=== PATIENT | male | born 1945 | race American Indian/Alaskan Native ===

== ENCOUNTER 2018-04-09 19:05 | Emergency (ER) | payer MEDICARE ==
--- NOTE | 2018-04-09 19:45 | Emergency Department Report ---
Blank Doc - Documentation Documentation: 72 y.o. male brought into ER via EMS with loss of memory and alcohol abuse. P atient states he fell and could not remember his address so EMS brought him to the emergency room. Admits to drinking today. Denies SI/HI, nausea and vomiting, chest pain, or palpitations Labs ordered MSE complete
[2018-04-09 20:01] LABS: Basophils % (Auto) 0.8 % (0.0-1.8); Eosinophils # (Auto) 0.1 K/mm3 (0.0-0.4); Eosinophils % (Auto) 2.2 % (0.0-4.3); Hematocrit 54.7 % (35.5-45.6); Hemoglobin 18.3 gm/dl (11.8-15.2); Lymphocytes # (Auto) 2.4 K/mm3 (1.2-5.4); Lymphocytes % (Auto) 43.3 % (13.4-35.0); Mean Corpuscular HGB Conc 34 % (32-34); Mean Corpuscular Volume 110 fl (84-94); Monocytes # (Auto) 0.4 K/mm3 (0.0-0.8); Monocytes % (Auto) 7.7 % (0.0-7.3); Platelet Count 173 K/mm3 (140-440); Red Blood Count 4.96 M/mm3 (3.65-5.03); Red Cell Distribution Width 14.3 % (13.2-15.2)
[2018-04-09 20:07] VITALS: BP 150/94
[2018-04-09 20:14] LABS: BUN/Creatinine Ratio 12; Blood Urea Nitrogen 11 mg/dL (9-20); Calcium 9.2 mg/dL (8.4-10.2); Hemolysis Index 29
--- NOTE | 2018-04-09 20:32 | Emergency Department Report ---
ED Alcohol HPI - General Chief Complaint: Alcohol Stated Complaint: AMS Time Seen by Provider: 04/09/18 19:40 Source: patient, EMS Mode of arrival: Stretcher Limitations: Other - History of Present Illness Initial Comments: Mr. Cheema is a very pleasant 72-year-old male who was brought by EMS. He was able to give a full history. He stated that he fell at the local [facility] which brought attention to himself. [facility] staff called EMS. He admitted to drinking half a pint of bourbon. He states that he just needs to go home. He lives in a home with his son. He does not have any medical conditions. He does not take any medications. He does not have any injuries. He has been very pleasant. He just desires to be discharged. According to my colleague's screening note, he was brought to ER because he could not remember his address. Last Drink: just [employer] Chronic Alcohol Use: Yes Previous Visits for Alcohol Intoxication?: No Recent Trauma: No Associated Symptoms: denies other symptoms Treatments Prior to Arrival: none - Related Data Home Medications Medication Instructions Recorded Confirmed Last Taken No Known Home Medications [No 11/10/14 11/10/14 Unknown Reported Home Medications] Allergies Allergy/AdvReac Type Severity Reaction Status Date / Time No Known Allergies Allergy Verified 11/10/14 02:37 ED Review of Systems ROS: Stated complaint: AMS Other details as noted in HPI Comment: All other systems reviewed and negative Constitutional: denies: fever, malaise Respiratory: denies: cough Cardiovascular: denies: chest pain Gastrointestinal: denies: abdominal pain ED Past Medical Hx - Past Medical History Previous Medical History?: Yes Hx Hypertension: No Hx Heart Attack/AMI: No Hx Kidney Stones: Yes - Surgical History Past Surgical History?: Yes Additional Surgical History: Kidney stones "blasted" at urologist - Social History Smoking Status: Current Every Day Smoker Substance Use Type: Alcohol - Medications Home Medications: Home Medications Medication Instructions Recorded Confirmed Last Taken Type No Known Home Medications [No 11/10/14 11/10/14 Unknown History Reported Home Medications] ED Physical Exam - General Limitations: Other General appearance: alert, in no apparent distress - Head Head exam: Present: atraumatic, normocephalic - Eye Eye exam: Present: normal appearance - ENT ENT exam: Present: mucous membranes moist - Neck Neck exam: Present: normal inspection. Absent: tenderness, meningismus - Respiratory Respiratory exam: Present: normal lung sounds bilaterally. Absent: respiratory distress, wheezes, rales, rhonchi - Cardiovascular Cardiovascular Exam: Present: regular rate, normal rhythm, normal heart sounds. Absent: systolic murmur, diastolic murmur, rubs, gallop - GI/Abdominal GI/Abdominal exam: Present: soft, normal bowel sounds. Absent: distended, tenderness, guarding, rebound - Rectal Rectal exam: Present: deferred - Extremities Exam Extremities exam: Present: normal inspection - Back Exam Back exam: Present: normal inspection - Neurological Exam Neurological exam: Present: alert, oriented X3 - Psychiatric Psychiatric exam: Present: normal affect, normal mood - Skin Skin exam: Present: warm, dry, intact, normal color. Absent: rash ED Course Vital Signs 04/09/18 04/09/18 19:25 20:05 Temperature 98.3 F 99.3 F Pulse Rate 81 84 Respiratory 18 16 Rate Blood Pressure 148/98 150/94 Blood Pressure 150/94 [Right] O2 Sat by Pulse 97 96 Oximetry ED Medical Decision Making - Lab Data Result diagrams: 04/09/18 19:50 04/09/18 19:50 Laboratory Results - last 24 hr 04/09/18 04/09/18 04/09/18 19:50 19:50 19:50 WBC 5.6 RBC 4.96 Hgb 18.3 H Hct 54.7 H MCV 110 H MCH 37 H MCHC 34 RDW 14.3 Plt Count 173 Lymph % (Auto) 43.3 H [place] % (Auto) 7.7 H Eos % (Auto) 2.2 Baso % (Auto) 0.8 Lymph # 2.4 [place] # 0.4 Eos # 0.1 Baso # 0.0 Seg Neutrophils % 46.0 Seg Neutrophils # 2.6 Sodium 141 Potassium 4.1 Chloride 104.0 Carbon Dioxide 24 Anion Gap 17 BUN 11 Creatinine 0.9 Estimated GFR > 60 BUN/Creatinine Ratio 12 Glucose 87 Calcium 9.2 Salicylates < 0.3 L Acetaminophen Plasma/Serum Alcohol 04/09/18 04/09/18 19:50 19:50 WBC RBC Hgb Hct MCV MCH MCHC RDW Plt Count Lymph % (Auto) [place] % (Auto) Eos % (Auto) Baso % (Auto) Lymph # [place] # Eos # Baso # Seg Neutrophils % Seg Neutrophils # Sodium Potassium Chloride Carbon Dioxide Anion Gap BUN Creatinine Estimated GFR BUN/Creatinine Ratio Glucose Calcium Salicylates Acetaminophen < 5.0 L Plasma/Serum Alcohol 0.11 H - Medical Decision Making Mr. Cheema presents with acute alcohol intoxication and fall. I had a very pleasant conversation with his son Nehemiah . Nehemiah did explain that his father has declined over quite some time. However, Nehemiah does make sure that his father has annual physicals with a PCP. Due to his frailty, Nehemiah does not allow Mr. Cheema to leave the home. Nehemiah agreed to come and machine pecan picker his father. No evidence of head injury or traumatic injury due to fall. Mr. Cheema is alert and insightful. Labs notable for hemoconcentration reflecting volume contraction. Also blood alcohol level is slightly above the legal limit at 0.11 Mr. Cheema's address is [address] [place] [address] Mr. Cheema was actually able to describe where he lived using street turns. However, he was unable to give the full address. Critical care attestation.: If time is entered above; I have spent that time in minutes in the direct care of this critically ill patient, excluding procedure time. ED Disposition Clinical Impression: Acute alcohol intoxication, Fall Disposition: DC-01 TO HOME OR SELFCARE Is pt being admited?: No Does the pt Need Aspirin: No Condition: Stable Instructions: Abuse of Alcohol (ED) Referrals: BIBI DAMON DO [Primary Care Provider] - 3-5 Days
== END 2018-04-09 20:48 | disposition home or self-care (01) ==
LOC: ED 19:05
DX: F10.129 Alcohol abuse with intoxication, unspecified (principal); F17.200 Nicotine dependence, unspecified, uncomplicated; W18.30XA Fall on same level, unspecified, initial encounter; Y93.89 Activity, other specified; Y99.8 Other external cause status; Y92.89 Other specified places as the place of occurrence of the external cause
CPT/HCPCS: 36415; 80048; 85025; 99283; G0480; 80320

== ENCOUNTER 2018-05-07 07:51 | Inpatient (IN) | payer MEDICARE ==
[2018-05-07] MEDS ORDERED: NACL 0.9% 1000 ML 1,000 ML IV ONE (08:37)
[2018-05-07 09:03] LABS: Basophils % (Auto) 0.6 % (0.0-1.8); Eosinophils % (Auto) 0.5 % (0.0-4.3); Lymphocytes # (Auto) 1.2 K/mm3 (1.2-5.4); Lymphocytes % (Auto) 18.4 % (13.4-35.0); Mean Corpuscular HGB Conc 36 % (32-34); Mean Corpuscular Volume 106 fl (84-94); Monocytes # (Auto) 0.5 K/mm3 (0.0-0.8); Monocytes % (Auto) 7.1 % (0.0-7.3); Platelet Count 181 K/mm3 (140-440); Red Blood Count 4.69 M/mm3 (3.65-5.03); Red Cell Distribution Width 13.6 % (13.2-15.2)
[2018-05-07 09:08] LABS: Hematocrit 49.6 % (35.5-45.6); Hemoglobin 17.6 gm/dl (11.8-15.2)
[2018-05-07 09:17] LABS: Alanine Aminotransferase 11 units/L (7-56); Albumin 3.8 g/dL (3.9-5); BUN/Creatinine Ratio 19; Blood Urea Nitrogen 13 mg/dL (9-20); Calcium 9.1 mg/dL (8.4-10.2); Hemolysis Index 21
--- NOTE | 2018-05-07 10:27 | Cat Scan Report ---
CT HEAD WITHOUT CONTRAST: 05/07/18 09:40 CLINICAL: Altered mental status. TECHNIQUE: 2.5-mm noncontrast scans. COMPARISON:None FINDINGS: Mild motion degrades the quality of the imaging. The ventricles are disproportionately large to the sulci and the ventriculomegaly involves the lateral, third and fourth ventricles. Moderate bilateral periventricular white matter hypodensities.An 8mm focal hypodensity of the left insula with no mass effect. The left side of the jojo is also diffusely hypodense but this may be due to streak artifact. No mass. No hemorrhage, edema or extra-axial collection. The sinuses are clear. Normal orbits and soft tissues. The calvarium and skull base are intact. 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 A left insular hypodensity suggests a possible subacute infarct. Left pontine hypodensity is also suspicious. Recommend MRI.
--- NOTE | 2018-05-07 10:59 | Emergency Department Report ---
ED General Adult HPI - General Chief complaint: Weakness Stated complaint: ETOH/UNABLE TO WALK Time Seen by Provider: 05/07/18 08:52 Source: EMS Mode of arrival: Stretcher Limitations: Altered Mental Status, Physical Limitation - History of Present Illness Initial comments: 72-year-old male found by police department on the side of the road with alcohol bottles around him. Patient was unable to ambulate, so EMS called. Patient apparently reported that tis has been happening for a while. Patient will not answer my questions. Accucheck by RN was in the 60s, meal tray given. I asked pt if he wanted breakfast, pt replied "I don't want it." -: unknown Severity scale (0 -10): 0 - Related Data Home Medications Medication Instructions Recorded Confirmed Last Taken No Known Home Medications [No 11/10/14 05/07/18 Unknown Reported Home Medications] Allergies Allergy/AdvReac Type Severity Reaction Status Date / Time No Known Allergies Allergy Verified 11/10/14 02:37 ED Review of Systems ROS: Stated complaint: ETOH/UNABLE TO WALK Other details as noted in HPI Comment: Unobtainable due to pts medical conditions (pt won't answer questions) ED Past Medical Hx - Past Medical History Hx Hypertension: No Hx Heart Attack/AMI: No Hx Kidney Stones: Yes Additional medical history: pt is poor historian - Surgical History Additional Surgical History: Kidney stones "blasted" at urologist - Social History Smoking Status: Never Smoker Substance Use Type: Alcohol - Medications Home Medications: Home Medications Medication Instructions Recorded Confirmed Last Taken Type No Known Home Medications [No 11/10/14 05/07/18 Unknown History Reported Home Medications] ED Physical Exam - General Limitations: Physical Limitation General appearance: alert, in no apparent distress - Head Head exam: Present: atraumatic, normocephalic - Eye Eye exam: Present: normal appearance - ENT ENT exam: Present: mucous membranes moist - Neck Neck exam: Present: normal inspection - Respiratory Respiratory exam: Present: normal lung sounds bilaterally. Absent: respiratory distress - Cardiovascular Cardiovascular Exam: Present: regular rate, normal rhythm - GI/Abdominal GI/Abdominal exam: Present: soft. Absent: distended, tenderness - Extremities Exam Extremities exam: Present: normal inspection - Neurological Exam Neurological exam: Present: alert, other (NIH: 7 (questions 1a =1, 1b= 1, 5a=2, 6a=2, 6b=1, 9=1)). Absent: CN II-XII intact - Psychiatric Psychiatric exam: Present: flat affect - Skin Skin exam: Present: dry ED Course Vital Signs 05/07/18 05/07/18 05/07/18 08:14 08:16 08:21 Temperature 97.9 F Pulse Rate 97 H 98 H 97 H Respiratory 25 H 22 20 Rate Blood Pressure 165/107 O2 Sat by Pulse 100 100 100 Oximetry 05/07/18 05/07/18 05/07/18 08:30 08:46 09:00 Temperature Pulse Rate 89 93 H 88 Respiratory 19 20 16 Rate Blood Pressure 165/107 155/101 161/122 O2 Sat by Pulse 100 100 100 Oximetry 05/07/18 05/07/18 05/07/18 09:15 09:30 10:32 Temperature Pulse Rate 88 84 83 Respiratory 18 17 15 Rate Blood Pressure 170/117 176/110 162/95 O2 Sat by Pulse 100 100 100 Oximetry 05/07/18 05/07/18 05/07/18 10:45 11:00 11:15 Temperature Pulse Rate 90 85 91 H Respiratory 16 14 15 Rate Blood Pressure 156/97 162/95 161/105 O2 Sat by Pulse 100 100 100 Oximetry 05/07/18 05/07/18 05/07/18 11:30 11:45 12:00 Temperature Pulse Rate 95 H 87 89 Respiratory 20 14 17 Rate Blood Pressure 182/102 170/101 158/99 O2 Sat by Pulse 100 100 100 Oximetry 05/07/18 05/07/18 05/07/18 12:15 12:30 12:46 Temperature Pulse Rate 90 101 H 97 H Respiratory 18 21 18 Rate Blood Pressure 153/97 161/98 159/97 O2 Sat by Pulse 100 100 100 Oximetry 05/07/18 05/07/18 05/07/18 13:00 13:15 13:30 Temperature Pulse Rate 96 H 96 H 94 H Respiratory 21 22 21 Rate Blood Pressure 148/97 148/97 155/87 O2 Sat by Pulse 99 100 100 Oximetry 05/07/18 13:45 Temperature Pulse Rate 96 H Respiratory 20 Rate Blood Pressure 156/93 O2 Sat by Pulse 100 Oximetry ED Medical Decision Making - Lab Data Result diagrams: 05/07/18 08:41 05/07/18 08:41 - EKG Data -: EKG Interpreted by Me EKG shows normal: sinus rhythm, axis, intervals, QRS complexes, ST-T waves Rate: normal - EKG Data Interpretation: no acute changes - Radiology Data Radiology results: report reviewed, image reviewed - Medical Decision Making 72-year-old male found by PD, brought in by EMS. Poor historian. CT head shows possible subacute infarcts. Patient has some left-sided deficit compared to right however he is not very compliant with exam. Remainder of workup is unr emarkable. Will admit hospitalist, Dr Soler. - Differential Diagnosis intoxication, CVA, dementia, infection Critical care attestation.: If time is entered above; I have spent that time in minutes in the direct care of this critically ill patient, excluding procedure time. ED Disposition Clinical Impression: CVA (cerebral vascular accident) Disposition: OP ADMIT IP TO THIS HOSP Is pt being admited?: Yes Condition: Stable Time of Disposition: 11:44
[2018-05-07 11:03] LABS: Bilirubin,Urine NEG (Negative); Blood,Urine NEG (Negative); Color,Urine Yellow (Yellow); Mucus,Urine FEW /HPF
[2018-05-07 11:12] LABS: Amphetamine Screen,Urine PRESUMPTIVE NEGATIVE; Benzodiazepines Screen,Urine PRESUMPTIVE NEGATIVE; Cannabinoid Screen,Urine PRESUMPTIVE NEGATIVE; Cocaine Screen,Urine PRESUMPTIVE NEGATIVE; Methadone Screen,Urine PRESUMPTIVE NEGATIVE; Opiate Screen,Urine PRESUMPTIVE NEGATIVE
--- NOTE | 2018-05-07 11:19 | XRay Report ---
AP CHEST: HISTORY: Altered mental status AP view of the chest demonstrates a normal mediastinal and cardiac contour with clear lungs and normal bony and soft tissue structures. IMPRESSION: Unremarkable AP chest.
--- NOTE | 2018-05-07 13:17 | History and Physical Report ---
History of Present Illness Chief complaint: i feel weak History of present illness: 72 YO Male with Nephrolithiasis, ETOH Dependence presents to ED for evaluation. Pt is confused and provides limited history. Pt history taken from ED staff, and EMS. As per staff, the patient was found to be confused, and unable to stand by police department. Pt was also lying on the side of the road with multiple empty alcohol bottles. Patient was unable to ambulate. EMS notified, and upon arrival the patient was found to have neurologic deficit. Pt transported to [facility]. Pt seen and evaluated in ED and found to have symptoms consistent with CVA. Pt admitted to telemetry and initiated on CVA protocol. No further history obtain able. Past History Past Medical History: other (Nephrolithiasis) Past Surgical History: Other (ESWOL) Social history: alcohol abuse Family history: no significant family history (reviewed) Medications and Allergies Allergies Allergy/AdvReac Type Severity Reaction Status Date / Time No Known Allergies Allergy Verified 11/10/14 02:37 Home Medications Medication Instructions Recorded Confirmed Last Taken Type No Known Home Medications [No 11/10/14 05/07/18 Unknown History Reported Home Medications] Review of Systems ROS unobtainable: due to mental status Exam - Constitutional Vitals: Temp Pulse Resp BP Pulse Ox 97.9 F 97 H 18 159/97 100 05/07/18 08:21 05/07/18 12:46 05/07/18 12:46 05/07/18 12:46 05/07/18 12:46 General appearance: Present: mild distress - EENT Eyes: Present: PERRL ENT: hearing intact, clear oral mucosa - Neck Neck: Present: supple, normal ROM - Respiratory Respiratory effort: normal Respiratory: bilateral: CTA - Cardiovascular Heart Sounds: Present: S1 & S2. Absent: rub, click - Extremities Extremities: pulses symmetrical, No edema Peripheral Pulses: within normal limits - Abdominal General gastrointestinal: Present: soft, non-tender, non-distended, normal bowel sounds Male genitourinary: Present: normal - Integumentary Integumentary: Present: clear, warm, dry - Musculoskeletal Musculoskeletal: generalized weakness - Psychiatric Psychiatric: no appropriate mood/affect, no intact judgment & insight, no memory intact - Neurologic Neurologic: CNII-XII intact, no gait normal Results - Labs CBC & Chem 7: 05/07/18 08:41 05/07/18 08:41 Labs: Abnormal lab results 05/07/18 05/07/18 05/07/18 Range/Units 08:41 08:41 08:56 Hgb 17.6 H (11.8-15.2) gm/dl Hct 49.6 H (35.5-45.6) % MCV 106 H (84-94) fl MCH 38 H (28-32) pg MCHC 36 H (32-34) % Seg Neutrophils % 73.4 H (40.0-70.0) % Sodium 136 L (137-145) mmol/L Creatinine 0.7 L (0.8-1.5) mg/dL POC Glucose 63 L (70-105) Albumin 3.8 L (3.9-5) g/dL Assessment and Plan - Patient Problems (1) CVA (cerebral vascular accident) Current Visit: Yes Status: Acute Qualifiers: Precerebral and cerebral artery: posterior cerebral artery Plan to address problem: Admit to telemetry: CVA Protocol: CT Head, MRI Brain, MRA Brain, Echo, Carotid Doppler, PT/OT/Speech Therapy, antiplatelet therapy, statin therapy, lipid panel (2) EtOH dependence Current Visit: Yes Status: Acute Qualifiers: Complication of substance-induced condition: with perceptual disturbance Plan to address problem: BAnana bag, thiamine, folic acid, multivitamin daily. (3) Encephalopathy Current Visit: Yes Status: Acute Plan to address problem: CT head, neuro checks, thyroid panel, (4) DVT prophylaxis Current Visit: Yes Status: Acute Plan to address problem: SCD to BLE while in bed. - Level of Consciousness 1a. Level of Consciousness: arousable/minor stimuli - LOC Questions 1b. LOC Questions: answers both correctly - LOC Command 1c. LOC Commands: performs tasks correctly - Best Gaze 2. Best Gaze: normal - Visual 3. Visual: no visual loss - Facial Palsy 4. Facial Palsy: normal symmetrical movement - Motor Arm 5a. Motor Arm Left: no drift 5b. Motor Arm Right: some gravity effort - Motor Leg 6a. Motor Leg Left: no drift 6b. Motor Leg Right: no movement - Limb Ataxia 7. Limb Ataxia: absent - Sensory 8. Sensory: mild/moderate sensory loss - Best Language 9. Best Language: no aphasia - Dysarthria 10. Dysarthria: normal - Extinction and Inattention 11. Extinction/Inattention: no abnormality - Scoring Total Score: 8 Stroke Severity: Moderate Stroke
[2018-05-07] MEDS ORDERED: MILK OF MAGNESIA PO PRN (13:29)
[2018-05-07] MEDS ORDERED: ZOFRAN IV PRN (13:29)
[2018-05-07] MEDS ORDERED: TYLENOL PO PRN (13:29)
[2018-05-07] MEDS ORDERED: PROVENTIL IH PRN (13:29)
[2018-05-07] MEDS ORDERED: PHENERGAN PR PRN (13:29)
[2018-05-07] MEDS ORDERED: SODIUM CHLORIDE FLUSH SYRINGE 10 ML IV PRN (13:29)
[2018-05-07] MEDS ORDERED: REGLAN PO PRN (13:29)
[2018-05-07] MEDS ORDERED: ATIVAN IV PRN (13:34)
[2018-05-07] MEDS ORDERED: THERAGRAN Tab PO ONE (13:36)
[2018-05-07] MEDS ORDERED: DULCOLAX PR PRN (13:46)
[2018-05-07] MEDS ORDERED: VITAMIN B-1 PO ONE (14:36)
[2018-05-07] MEDS ORDERED: FOLVITE 1 MG, INFUVITE 10 ML in NACL 0.9% 1000 ML 1,000 ML IV ONE (15:00)
--- NOTE | 2018-05-07 18:25 | Magnetic Resonance Report ---
PROCEDURE: MRI brain without contrast. TECHNIQUE: Magnetic resonance imaging of the brain was performed without contrast material. HISTORY: Stroke. COMPARISONS: CT head 05/06/2018. Dictation not available. FINDINGS: There is severe motion artifact on the majority of the pulse sequences. There is mild cerebral atroph y. There is some abnormal increased signal intensity within the periventricular deep white matter on the T2 and FLAIR weighted sequences. This is not unusual for age and likely represents chronic microv ascular ischemic change. There are no mass lesions. There is no intracranial hemorrhage. There are no signs of restricted diffusion. The mastoid air cells and paranasal sinuses are grossly clear. IMPRESSION: Very limited study due to motion artifact. Mild cerebral atrophy and chronic ischemic whi te matter disease consistent with age. This document is electronically signed by Christian Dickens MD., May 07 2018 06:23:01 PM ET
[2018-05-07 19:18] LABS: Free T4 (Free Thyroxine) 1.03 ng/dL (0.76-1.46)
--- NOTE | 2018-05-07 19:33 | Magnetic Resonance Report ---
PROCEDURE: Magnetic resonance angiogram of the brain without contrast. TECHNIQUE: Axial 3-D [id number] MR angiography of the [place] of [place] and brain was performed. The source images were reconstructed in various views using maximum intensity projection. HISTORY: Stroke. COMPARISONS: None. FINDINGS: This study is severely limited by severe motion artifact. Both distal internal carotid arteries are p atent. Both distal vertebral arteries are patent. The basilar artery is patent. The superior cerebell ar and posterior cerebral arteries are patent. The middle cerebral and anterior cerebral arteries are not adequately visualized. IMPRESSION: Very limited study with severe motion artifact. Patent major vessels as described. This document is electronically signed by Christian Dickens MD., May 07 2018 07:30:46 PM ET
[2018-05-08] MEDS: FOLVITE PO SCH (10:28)
[2018-05-08] MEDS: ASPIRIN PO SCH (10:28)
--- NOTE | 2018-05-08 13:34 | Consultation ---
History of Present Illness Consult date: 05/08/18 Requesting physician: KELLY GILLILAND Reason for Consult: stroke evaluation History of present illness: 72 yr old male with hx of nephrolithiasis and alcohol dependence was found down by the police. When he attempting to stand him up, he was unable to walk. He was brought to the ER for evaluation. A stroke work-up ensued. Today the pt. denies pain. He does not take any medications Past History Past Medical History: other (Nephrolithiasis) Past Surgical History: Other (ESWOL) Social history: alcohol abuse Family history: no significant family history (reviewed) Medications and Allergies Allergies Allergy/AdvReac Type Severity Reaction Status Date / Time No Known Allergies Allergy Verified 11/10/14 02:37 Home Medications Medication Instructions Recorded Confirmed Last Taken Type No Known Home Medications [No 11/10/14 05/07/18 Unknown History Reported Home Medications] Active Meds: Active Medications Acetaminophen (Tylenol) 650 mg PO Q4H PRN PRN Reason: Pain, Mild (1-3) Last Admin: 05/08/18 10:37 Dose: 650 mg Documented by: Albuterol (Proventil) 2.5 mg IH Q3HRT PRN PRN Reason: Shortness Of Breath Aspirin (Aspirin) 325 mg PO QDAY [facility] Last Admin: 05/08/18 10:28 Dose: 325 mg Documented by: Atorvastatin Calcium (Lipitor) 40 mg PO QHS [facility] Last Admin: 05/07/18 21:30 Dose: 40 mg Documented by: Bisacodyl (Dulcolax) 10 mg [place] QDAY PRN PRN Reason: Constipation Folic Acid (Folvite) 1 mg PO QDAY [facility] Last Admin: 05/08/18 10:28 Dose: 1 mg Documented by: Lorazepam (Ativan) 2 mg IV Q1HR PRN PRN Reason: CIWA-Ar 8-15 Magnesium Hydroxide (Milk Of Magnesia) 30 ml PO Q4H PRN PRN Reason: Constipation Metoclopramide HCl (Reglan) 10 mg PO Q6H PRN PRN Reason: Nausea And Vomiting Ondansetron HCl (Zofran) 4 mg IV Q8H PRN PRN Reason: Nausea And Vomiting Promethazine HCl (Phenergan) 25 mg [place] Q6H PRN PRN Reason: Nausea And Vomiting Sodium Chloride (Sodium Chloride Flush Syringe 10 Ml) 10 ml IV PRN PRN PRN Reason: LINE FLUSH Physical Examination - Vital Signs Vital Signs: Vital Signs Pulse Resp Pulse Ox 97 H 25 H 100 05/07/18 08:14 05/07/18 08:14 05/07/18 08:14 - Physical Exam Narrative exam: Lying peacefully in bed. Neurological exam - Speech fluent sales representative facility services - EOMs intact, no nystagmus. V-1 thru V-3 normal bilaterally., Face symmetric. Hearing intact, Tongue midline. Motor - symmetric. Iliopsoas 5/5 bilaterally. Not compliant with entire exam. Reflexes - trace throughout. Sensory - Intact to touch and pin Cerebellar - FTN intact, fine finger movements OK. Day poorly done. - Level of Consciousness 1a. Level of Consciousness: arousable/minor stimuli - LOC Questions 1b. LOC Questions: answers both correctly - LOC Command 1c. LOC Commands: performs tasks correctly - Best Gaze 2. Best Gaze: normal - Visual 3. Visual: no visual loss - Facial Palsy 4. Facial Palsy: normal symmetrical movement - Motor Arm 5b. Motor Arm Right: some gravity effort - Motor Leg 6a. Motor Leg Left: no drift - Limb Ataxia 7. Limb Ataxia: absent - Sensory 8. Sensory: mild/moderate sensory loss - Best Language 9. Best Language: no aphasia - Dysarthria 10. Dysarthria: normal - Extinction and Inattention 11. Extinction/Inattention: no abnormality Results - Laboratory Findings CBC and BMP: 05/07/18 08:41 05/07/18 08:41 Abnormal Lab Findings: Abnormal Labs 05/07/18 05/07/18 05/07/18 08:41 08:41 08:56 Hgb 17.6 H Hct 49.6 H MCV 106 H MCH 38 H MCHC 36 H Seg Neutrophils % 73.4 H Sodium 136 L Creatinine 0.7 L POC Glucose 63 L Albumin 3.8 L Vitamin B12 05/07/18 18:03 Hgb Hct MCV MCH MCHC Seg Neutrophils % Sodium Creatinine POC Glucose Albumin Vitamin B12 175.1 L Assessment and Plan 72 yr old male brought in because he was found down and unable to ambulate. A stroke work-up ensued. The pt. underwent MRI scan of the brain which revealed microvascular disease, no acute stroke. MRA was unremarkable. Carotid dopplers, and echocardiogram have been done, results pending. On exam the pt. has good lower extremity strength and should be able to bear weight. Plan - Physical therapy to work with pt. Continue ASA and atorvastatin..
--- NOTE | 2018-05-08 14:23 | Progress Note ---
Assessment and Plan / Possible TIA monitor at telemetry: admitted with CVA Protocol: cont asp/statin Stroke workup negative neurology consulted follow Pt eval / EtOH dependence s/p BAnana bag, cont thiamine, folic acid daily. / Encephalopathy TIA vs alcohol intoxication?? cont neuro checks, EtOH was normal, UDS was normal /Vit B12 deficiency, replace po and 1 dose IM /DVT prophylaxis SCD to BLE while in bed. Brief History: 72 yr old male with hx of nephrolithiasis and alcohol dependence was found down by the police. When he attempting to stand him up, he was unable to walk. He was brought to the ER for evaluation. A stroke work-up ensued. Subjective Date of service: 05/08/18 Interval history: patient seen and examined denies chest pain, no SOB denies any new focal deficit Objective - Constitutional Vitals: Vital Signs - 12hr 05/08/18 05/08/18 05/08/18 04:07 09:20 09:21 Temperature 99.2 F 98.6 F Pulse Rate 82 69 Respiratory 18 18 Rate Blood Pressure 153/95 151/88 O2 Sat by Pulse 96 95 Oximetry 05/08/18 05/08/18 05/08/18 12:00 12:03 12:08 Temperature 98.4 F 98.4 F Pulse Rate 67 Respiratory 18 Rate Blood Pressure 155/93 O2 Sat by Pulse 94 Oximetry General appearance: Present: no acute distress, other (elderly) - EENT Eyes: PERRL, EOM intact ENT: hearing intact, clear oral mucosa Ears: bilateral: normal - Neck Neck: supple, normal ROM - Respiratory Respiratory effort: normal Respiratory: bilateral: CTA - Cardiovascular Rhythm: regular Heart Sounds: Present: S1 & S2. Absent: gallop, rub Extremities: pulses intact, No edema, normal color, Full ROM - Gastrointestinal General gastrointestinal: Present: soft, non-tender, non-distended, normal bowel sounds - Integumentary Integumentary: clear, warm, dry - Musculoskeletal Musculoskeletal: 1, strength equal bilaterally - Neurologic Neurologic: moves all extremities - Psychiatric Psychiatric: memory intact, appropriate mood/affect, intact judgment & insight - Labs CBC & Chem 7: 05/09/18 04:40 05/09/18 04:40 Labs: Abnormal lab results 05/07/18 Range/Units 18:03 Vitamin B12 175.1 L (211-911) pg/mL - Imaging and cardiology Chest x-ray: report reviewed CT Scan - head: report reviewed
[2018-05-08] MEDS ORDERED: VITAMIN B-12 IM ONE (14:24)
--- NOTE | 2018-05-08 17:03 | Vascular Lab Report ---
PROCEDURE: VL CAROTID DUPLEX BILAT TECHNIQUE: Ultrasound carotid arteries with post color Doppler evaluation HISTORY: stroke COMPARISONS: FINDINGS: Right common carotid artery demonstrates normal sonographic appearance. Systolic velocity 70 cm/s and diastolic velocity 21 cm/s Minimal smooth plaque formation noted within the right ICA. Peak systolic velocity 66 cm/s and diasto lic velocity 22 cm/s The right ECA is patent Antegrade flow noted within the right vertebral artery. Left common carotid artery demonstrates normal sonographic appearance. Peak systolic velocity 72 cm/s and diastolic velocity 20 cm/s Minimal intimal thickening noted left ICA. Peak systolic velocity 70 cm/s and diastolic velocity 24 c m/s The left ECA is patent Left vertebral artery demonstrates antegrade flow IMPRESSION: Minimal plaque and intimal thickening in the ICAs. Less then 50% stenosis range bilaterally. This document is electronically signed by Davy Bae MD., May 08 2018 05:00:26 PM ET
[2018-05-08] MEDS: VITAMIN B-12 PO SCH (17:16)
[2018-05-08] MEDS: LOVENOX SUB-Q SCH (22:27)
[2018-05-09 05:56] LABS: Basophils % (Auto) 0.7 % (0.0-1.8); Eosinophils # (Auto) 0.1 K/mm3 (0.0-0.4); Eosinophils % (Auto) 3.9 % (0.0-4.3); Hematocrit 47.7 % (35.5-45.6); Hemoglobin 16.2 gm/dl (11.8-15.2); Lymphocytes # (Auto) 1.6 K/mm3 (1.2-5.4); Lymphocytes % (Auto) 43.5 % (13.4-35.0); Mean Corpuscular HGB Conc 34 % (32-34); Mean Corpuscular Volume 108 fl (84-94); Monocytes # (Auto) 0.3 K/mm3 (0.0-0.8); Monocytes % (Auto) 8.4 % (0.0-7.3); Platelet Count 153 K/mm3 (140-440); Red Blood Count 4.43 M/mm3 (3.65-5.03)
[2018-05-09 06:15] LABS: Alanine Aminotransferase 15 units/L (7-56); Albumin 3.4 g/dL (3.9-5); BUN/Creatinine Ratio 14; Bilirubin,Direct 0.2 mg/dL (0-0.2); Blood Urea Nitrogen 10 mg/dL (9-20); Calcium 8.6 mg/dL (8.4-10.2); Hemolysis Index 6
[2018-05-09] MEDS: VITAMIN B-12 PO SCH (10:55)
[2018-05-09] MEDS: ASPIRIN PO SCH (10:55)
[2018-05-09] MEDS: FOLVITE PO SCH (10:55)
--- NOTE | 2018-05-09 14:28 | Discharge Summary ---
Providers - Providers Date of Admission: 05/07/18 13:29 Date of discharge: 05/09/18 Attending physician: DEAN MARTEL 05/07/18 13:30 Occupational Therapy Evaluate and Treat [CONS] Routine Comment: Reason For Exam: Neuro deficits Physical Therapy Evaluation and Treat [CONS] Routine Comment: Reason For Exam: Neuro deficits 05/07/18 16:24 Consult to Physician [CONS] Routine Comment: Consulting Provider: RC BARROW Physician Instructions: Reason For Exam: cva Primary care physician: ALLIGATOR HUNTER Hospitalization Reason for admission: stroke like symptom Condition: Stable Pertinent studies: CT head MRI/MRA brain 2d echo CXR Hospital course: Brief History: 72 yr old male with hx of nephrolithiasis and alcohol dependence was found down by the police. When he attempting to stand up, he was unable to walk. He was brought to the ER for evaluation. A stroke work-up ensued. CT head/MRI brain didnot revealed any acute stroke. He was given banana bag, thiamib, folic acid, placed on aspirin/statin, his B12 level was low, given replacement with IM and PO dose. He was then discharged home in stable condition with his Son. Discharge Diagnosis: / Possible TIA monitored at telemetry: admitted with CVA Protocol: continued aspirin/statin Stroke workup was negative neurology consulted PT recommended HH and roller walker /HTN, uncontrolled started on lisinopril / EtOH dependence s/p BAnana bag, continued thiamine, folic acid daily. Patient didnot have sign of withdrawal on discharge / Encephalopathy TIA vs alcohol intoxication?? Monitored with frequent neuro checks, EtOH was normal, UDS was normal /Vit B12 deficiency, started replacement with po dose and was given 1 dose IM dose /DVT prophylaxis SCD to BLE while in bed. Disposition: - TO HOME OR SELFCARE Time spent for discharge: 34 minutes Core Measure Documentation - Palliative Care Palliative Care/ Comfort Measures: Not Applicable - Core Measures Any of the following diagnoses?: none Exam - Physical Exam Narrative exam: General appearance: Present: no acute distress, other (elderly) - EENT Eyes: PERRL, EOM intact ENT: hearing intact, clear oral mucosa Ears: bilateral: normal - Neck Neck: supple, normal ROM - Respiratory Respiratory effort: normal Respiratory: bilateral: CTA - Cardiovascular Rhythm: regular Heart Sounds: Present: S1 & S2. Absent: gallop, rub Extremities: pulses intact, No edema, normal color, Full ROM - Gastrointestinal General gastrointestinal: Present: soft, non-tender, non-distended, normal bowel sounds - Integumentary Integumentary: clear, warm, dry - Musculoskeletal Musculoskeletal: 1, strength equal bilaterally - Neurologic Neurologic: moves all extremities - Psychiatric Psychiatric: memory intact, appropriate mood/affect, intact judgment & insight - Constitutional Vitals: Temp Pulse Resp BP Pulse Ox 98.4 F 60 18 159/91 98 05/09/18 12:26 05/09/18 12:26 05/09/18 12:26 05/09/18 12:26 05/09/18 12:26 Plan Activity: advance as tolerated Weight Bearing Status: Weight Bear as Tolerated Diet: low fat, low salt Durable Medical Equipment Needed Upon Discharge: Walker-Rolling Follow up with: PRIMARY CARE, [Primary Care Provider] - 3-5 Days Prescriptions: AtorvaSTATin [Lipitor] 40 mg PO QHS #30 tablet Aspirin [Aspirin BABY CHEW TAB] 81 mg PO QDAY #30 tab.chew Lisinopril 20 mg PO DAILY #30 tablet Cyanocobalamin [Vitamin B-12] 2,000 mcg PO QDAY #30 tablet
[2018-05-09] MEDS: LOVENOX SUB-Q SCH (21:23)
[2018-05-10 09:22] VITALS: BP 156/89
[2018-05-10] MEDS: VITAMIN B-12 PO SCH (10:36)
[2018-05-10] MEDS: FOLVITE PO SCH (10:37)
[2018-05-10] MEDS: ASPIRIN PO SCH (10:37)
--- NOTE | 2018-05-10 23:14 | Event Note ---
Date: 05/10/18 Patient's son did not come to pick remover the patient RN called again today and patient was then discharged with his Son in stable condition.
== END 2018-05-10 15:36 | disposition home or self-care (01) | DRG 69 ==
LOC: ED 07:51 → 4A 13:29
PROVIDERS: ADMIT Internal Medicine; ATTEND Internal Medicine
DX: G45.9 Transient cerebral ischemic attack, unspecified (principal); G93.40 Encephalopathy, unspecified; F10.288 Alcohol dependence with other alcohol-induced disorder; Y90.0 Blood alcohol level of less than 20 mg/100 ml; E53.8 Deficiency of other specified B group vitamins; Z87.442 Personal history of urinary calculi
CPT/HCPCS: 36415; 70450; 70544; 70551; 71045; 80048; 80053; 80076; 80307; 80320; 81001; 82607; 82962; 84439; 84443; 85025; 93005; 93010; 93306; 93880; 96361; 96365; G0378; A9270-GY; G0480; J1650; J3420; J7030